=== PATIENT | male | born 1945 | race Caucasian/White ===

== ENCOUNTER → 2017-09-16 07:27 | Outpatient (CLI) | payer MEDICARE, BC ==
[2016-03-06 17:39] VITALS: BMI 23.7
[~2017-09-16 07:27] MED LIST: RESTORIL15 MG PO; ULTRAM50 MG PO; ZETIA10 MG PO; ZOFRAN4 MG PO
== END ==
LOC: D.MRI 07:27
DX: K76.89 Other specified diseases of liver (principal)

== ENCOUNTER 2020-08-14 05:33 | Day surgery (SDC) | payer MEDICARE, OTHER ==
[~2020-08-14] VITALS: Ht 177.8 cm; Wt 73.0 kg
--- NOTE | ~2020-08-14 | OP ---
PATIENT NAME: MICHAEL RODRIGUEZ MEDICAL RECORD: [id number] :47 [facility] DATE: SURGEON: EMEKA SHAVER MD DATE OF OPERATION: 08/14/2020 PREOPERATIVE DIAGNOSES: 1. Bilateral inguinal hernias. 2. Hypercholesterolemia. 3. History of prostate cancer status post prostatectomy. PROCEDURE: Bilateral inguinal hernia repairs with medium PHS mesh. SURGEON: Emeka Shaver MD REPORT OF PROCEDURE: The patient's abdomen was prepped and draped in sterile fashion. We approached the right side first. An oblique incision was made above the inguinal ligament. Electrocautery was used to dissect through the subcutaneous tissues to the external oblique fascia. This fascia was opened up to the external ring using electrocautery. We elevated the spermatic cord and a Nina was placed around it. The patient had an ilioinguinal nerve, which was high ligated. The patient had a moderate size indirect hernia sac, which was dissected from the spermatic cord. This was high-ligated, but upon placing ligation the suture came loose, leaving an open entrance into the abdominal cavity. I went ahead and oversewed the hernia sac using a running 3-0 Vicryl. This closed up the hernia defect. We then opened up the inguinal floor and opened up the preperitoneal space of Retzius. There was some scarring to the underlying tissue from previous prostatectomy. Once we had this opened up and a medium PHS mesh was inserted and sutured down on all 4 sides using multiple interrupted 0 Vicryls. We irrigated out the wound with normal saline and assured there was no sign of any bleeding. The external oblique fascia was closed with running 2-0 Vicryl, Win's was closed with interrupted 3-0 Vicryl and the skin was closed with running subcutaneous 5-0 Monocryl. We approached the left side now. An oblique incision was made above the inguinal ligament. Electrocautery was used to dissect through the subcutaneous tissues down to the external oblique fascia. This fascia was opened up to the external ring using electrocautery. The spermatic cord was elevated and a Inna was placed around it. The ilioinguinal nerve had 2 branches and these were both high ligated. A small indirect hernia defect was found and this was dissected from the spermatic cord. We pushed this back into the abdominal cavity. We then opened up the inguinal floor and again there was some scarring noted in the preperitoneal space of Retzius. Once we had this opened up, then a medium PHS mesh was inserted and sutured down on all 4 sides using multiple interrupted 0 Vicryls. We irrigated out the wound with normal saline and assured there was no sign of any bleeding. The external oblique fascia was then closed with running 2-0 Vicryl, Win's was closed with interrupted 3-0 Vicryl and the skin was closed with running subcutaneous 5-0 Monocryl. A total of 20 mL of 0.25% Marcaine with epinephrine was infused into the surrounding tissues and the wounds were dressed appropriately. COMPLICATIONS: None. CONDITION: Stable. ANESTHESIA: General endotracheal and local. OPERATIVE REPORT [id number] MICHAEL RODRIGUEZ BLOOD LOSS: Minimal. TRANSINT:[id number] Voice Confirmation ID: [id number] DOCUMENT ID: [id number] EMEAK SHAVER MD CC: RICHARD TORO DO [id number] DICTATION DATE: 08/14/20917 S[place] MILL GRINDER: 08/14/20 [address] [place] [address]
[~2020-08-14 05:33] MED LIST changes: +CIALIS2.5 MG PO; +CYCLOBENZAPRINE10 MG PO; +IPRATROPIUM BRO15 M1 NASAL; +KENALOG 0.1 % 115 GM TOPICAL; +LINZESS145 MCG PO
[2020-08-14 05:51] LABS: HEMATOCRIT 37.1 % (42.0-54.0); HEMOGLOBIN 11.1 g/dL (13.5-17.5); MCH 24.2 pg (26.0-34.0); MCHC 29.9 g/dL (31.0-37.0); MCV 80.8 fL (80.0-100.0); MEAN PLATELET VOLUME 9.7 fL (7.4-10.4); RBC 4.59 10x6/uL (4.20-6.10); RDW 16.5 % (11.5-14.5); WBC 5.9 10x3/uL (4.8-10.8)
[2020-08-14 07:01] VITALS: BP 141/74; Ht 177.8 cm; Wt 73.0 kg
[2020-08-14] MEDS ORDERED: HYDROCODON-ACE1 EA10 PO (09:13)
--- NOTE | 2020-08-14 11:14 | NUR ---
1053 PT VOIDED WITHOUT DIFFICULTY ON HIS SECOND ATTEMPT. 1055 IV DC'D. CATHETER TIP INTACT. PRESSURE HELD UNTIL BLEEDING STOPPED. COBAN DRESSING APPLIED. REVIEWED DISCHARGE INSTRUCTIONS WITH PATIENT WHO VOICES UNDERSTANDING OF INSTRUCTIONS.
--- NOTE | 2020-08-14 11:17 | NUR ---
1100 NO INCREASE IN DRAINAGE ON LEFT GROIN DRESSING. RIGHT GROIN DSG REMAINS CDI
== END 2020-08-14 11:14 | disposition home or self-care (01) ==
LOC: D.OPS 05:33 → D.PAN 08:15 → D.OPS 09:00
PROVIDERS: Anesthesiology; ATTEND Surgery
DX: K40.20 Bilateral inguinal hernia, without obstruction or gangrene, not specified as recurrent (principal); E78.00 Pure hypercholesterolemia, unspecified; Z85.46 Personal history of malignant neoplasm of prostate

== ENCOUNTER 2021-02-09 17:50 | Emergency (ER) | payer MEDICARE, OTHER ==
[~2021-02-09] VITALS: Ht 177.8 cm; Wt 73.6 kg
[~2021-02-09 17:50] MED LIST changes: +HYDROCODON-ACE1 EA10 PO
[2021-02-09 18:03] VITALS: BP 127/71; Ht 177.8 cm; Wt 73.6 kg
[2021-02-09] MEDS ORDERED: HYDROCODON-ACE1 EAC7 PO (19:38)
== END 2021-02-09 20:52 | disposition home or self-care (01) ==
LOC: D.ER 17:50
DX: S82.402A Unspecified fracture of shaft of left fibula, initial encounter for closed fracture (principal); T14.8XXA Other injury of unspecified body region, initial encounter; V29.3XXA Motorcycle rider (driver) (passenger) injured in unspecified nontraffic accident, initial encounter; Y93.9 Activity, unspecified; Y92.9 Unspecified place or not applicable; N40.0 Benign prostatic hyperplasia without lower urinary tract symptoms

== ENCOUNTER 2021-02-19 06:58 | Day surgery (SDC) | payer MEDICARE, OTHER ==
[~2021-02-19] VITALS: Ht 177.8 cm; Wt 73.9 kg
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
[~2021-02-19 06:58] MED LIST changes: +CHRONULAC30 ML PO; +HYDROCODON-ACE1 EAC7 PO
[2021-02-19 07:19] LABS: BASOPHILS 0.5 % (0-2); EOSINOPHILS 2.6 % (0-7); HEMATOCRIT 42.2 % (42.0-54.0); HEMOGLOBIN 13.6 g/dL (13.5-17.5); LYMPHOCYTE ABS# 1.06 10x3/uL (1.32-3.57); MCH 28.5 pg (26.0-34.0); MCHC 32.2 g/dL (31.0-37.0); MCV 88.5 fL (80.0-100.0); MEAN PLATELET VOLUME 9.8 fL (7.4-10.4); MONOCYTES 6.1 % (2-11); NEUTROPHIL ABS# 6.34 10x3/uL (1.78-5.38); NEUTROPHILS 77.8 % (40-80); RBC 4.77 10x6/uL (4.20-6.10); RDW 15.5 % (11.5-14.5); WBC 8.2 10x3/uL (4.8-10.8)
[2021-02-19 07:23] LABS: PLATELET COUNT 269 10x3/uL (130-400)
[2021-02-19 07:24] LABS: ANION GAP 9.8 mmol/L (8-16); CALCIUM 9.2 mg/dL (8.5-10.1); CARBON DIOXIDE 30.1 mmol/L (21.0-32.0); CREATININE - SERUM 1.1 mg/dL (0.6-1.3); POTASSIUM - SERUM 3.9 mmol/L (3.5-5.1)
[2021-02-19 07:38] LABS: APTT 28.3 SECONDS (22.8-39.4); INR 1.02 (0.85-1.17); PROTIME 12.4 SECONDS (11.6-15.0)
[2021-02-19] MEDS ORDERED: VIAGRA100 MG (08:23)
[2021-02-19 08:26] VITALS: BP 130/83; Ht 177.8 cm; Wt 73.9 kg
--- NOTE | 2021-02-19 12:49 | NUR ---
OPA IN AIRWAY ON ADMIT
--- NOTE | 2021-02-19 13:28 | NUR ---
1315 PT LYING ON SIDE ASLEEP. EASY TO ARROUSE. ISAURA AND SPLINT TO LEFT LEG. TOES BRUISED. SISTER AT BEDSIDE. INSTRUCTIONS IN PACKET.
--- NOTE | 2021-02-19 14:38 | NUR ---
1430 IV REMOVE AND INSTRUCTIONS GIVEN
--- NOTE | 2021-02-19 15:49 | NUR ---
1445 IV REMOVED AND PRESSURE HELD. INSTRUCTIONS GIVEN
== END 2021-02-19 15:35 | disposition home or self-care (01) ==
LOC: D.OPS 06:58
PROVIDERS: Anesthesiology; ATTEND Orthopaedic Surgery
DX: S82.852A Displaced trimalleolar fracture of left lower leg, initial encounter for closed fracture (principal); X58.XXXA Exposure to other specified factors, initial encounter; M25.572 Pain in left ankle and joints of left foot